=== PATIENT | female | born 1975 | race Caucasian/White ===

== ENCOUNTER 2016-06-22 12:27 | Emergency (ER) | payer OTHER ==
[2016-06-22 13:23] VITALS: RESP 18
[2016-06-22] MEDS ORDERED: LET GEL TOPICAL 1 EA SYR TP ONE (13:34)
--- NOTE | 2016-06-22 15:06 | EDPHY ---
H & P Chief Complaint Nursing Narrative: LEFT WRIST DOG BITE OCCURRED TODAY AT 930AM WHEN PT DOG BIT HER, BLEEDING CONTORLLED. +CMS Time Seen by Provider: 06/22/16 14:56 HPI/ROS: CHIEF COMPLAINT: Left wrist laceration, dog bite HISTORY OF PRESENT ILLNESS: The patient is a 41-year-old female whose dog bit her on the wrist. She has a 3 cm laceration to the dorsal aspect of her left wrist. She also has several puncture wounds around the palmar aspect. Normal sensation and pulses. Normal capillary refill. Normal strength and movement. No paresthesias. This happened around 10:00 a.m.. She went to her primary care doctor who referred her here. REVIEW OF SYSTEMS: Constitutional: denies: chills, fever, recent illness, recent injury EENTM: denies: blurred vision, double vision, nose congestion Respiratory: denies: cough, shortness of breath Cardiac: denies: chest pain, irregular heart rate, lightheadedness, palpitations Gastrointestinal/Abdominal: denies: abdominal pain, diarrhea, nausea, vomiting, blood streaked stools Genitourinary: denies: dysuria, frequency, hematuria, pain Musculoskeletal: denies: joint pain, muscle pain Skin: See HPI Neurological: denies: headache, numbness, paresthesia, tingling, dizziness, weakness Hematologic/Lymphatic: denies: blood clots, easy bleeding, easy bruising Immunologic/allergic: denies: HIV/AIDS, transplant EXAM: GENERAL: Well-appearing, well-nourished and in no acute distress. HEAD: Atraumatic, normocephalic. EYES: Pupils equal round and reactive to light, extraocular movements intact, sclera anicteric, conjunctiva are normal. ENT: TMs normal, nares patent, oropharynx clear without exudates. Moist mucous membranes. NECK: Normal range of motion, supple without lymphadenopathy or JVD. LUNGS: Breath sounds clear to auscultation bilaterally and equal. No wheezes rales or rhonchi. HEART: Regular rate and rhythm without murmurs, rubs or gallops. ABDOMEN: Soft, nontender, normoactive bowel sounds. No guarding, no rebound. No masses appreciated. BACK: No CVA tenderness, no spinal tenderness, step-offs or deformities EXTREMITIES: Normal range of motion, no pitting or edema. No clubbing or cyanosis. NEUROLOGICAL: Cranial nerves II through XII grossly intact. Normal speech, normal gait. 5/5 strength, normal movement in all extremities, normal sensation PSYCH: Normal mood, normal affect. SKIN: 3 cm laceration over dorsal aspect of left wrist, fashion visible and intact. No visible tendon nerve or vascular injuries. Exam through full range of motion. No visible foreign body. Several small puncture wounds over the palmar and lateral aspects of her wrist as well. 1 with a small amount of fat protruding. Source: Patient Exam Limitations: No limitations - Personal History LMP (Females 10-55): 1-7 Days Ago Current Tetanus Diphtheria and Acellular Pertussis (TDAP): Yes Tetanus Vaccine Date: 06/22/2016 - Medical/Surgical History Hx Asthma: No Hx Chronic Respiratory Disease: No Hx Diabetes: No Hx Cardiac Disease: No Hx Renal Disease: No Hx Cirrhosis: No Hx Alcoholism: No Hx HIV/AIDS: No Other PMH: KNEE SURG - Family History Significant Family History: No pertinent family hx - Social History Smoking Status: Never smoked Alcohol Use: Sober Drug Use: None Constitutional: Initial Vital Signs Temperature (C) 36.6 C 06/22/16 13:00 Heart Rate 83 06/22/16 13:00 Respiratory Rate 18 06/22/16 13:00 Blood Pressure 120/67 06/22/16 13:00 O2 Sat (%) 95 06/22/16 13:00 O2 Delivery Mode Room Air Allergies/Adverse Reactions: No Known Allergies Allergy (Unverified 06/22/16 13:23) Home Medications: Medication Instructions Recorded Amoxicillin/Clavulanate Pot 875 mg PO BID #14 tab 06/22/16 [Augmentin 875Mg] Medical Decision Making Procedures: Procedure: Laceration repair. Verbal consent was obtained from the patient. The 3 cm wrist laceration was anesthetized with 0.5% bupivacaine with epinephrine locally infiltrated. The wound was irrigated copiously according to protocol, draped and explored to its base. It was approximately 1/2 cm deep. There were no deep structures involved. No tendon, nerve, or vascular injury was identified when explored through full range of motion. No foreign body was identified. The wound was repaired with 5.0 Ethilon, 10 sutures, continuous interlocking. The wound repair was simple without wound margin revisement or multiple flap alignment. The procedure was performed by myself. A dressing was then placed with sterile gauze and bacitracin. Procedure: Laceration repair. Verbal consent was obtained from the patient. The 1 cm left wrist puncture/ laceration was anesthetized with 0.5% bupivacaine with epinephrine locally infiltrated. The wound was irrigated copiously according to protocol, draped and explored to its base. It was approximately 1/2 cm deep. There were no deep structures involved. No tendon, nerve, or vascular injury was identified when explored through full range of motion. No foreign body was identified. The wound was repaired with 5.0 Ethilon, 1 suture. The wound repair was simple without wound margin revisement or multiple flap alignment. The procedure was performed by myself. A dressing was then placed with sterile gauze and bacitracin. ED Course/Re-evaluation: Patient tolerated the procedure well. We discussed sutures and suture care. I will start her on antibiotics for prophylaxis considering the location of the wound. She understands and agrees with this plan. She declines further workup or testing at this time. Differential Diagnosis: Partial list of the Differential diagnosis considered include but were not limited to; laceration, dog bite, puncture wound, foreign body, tendon injury, nerve injury, vascular injury and although unlikely based on the history and physical exam, I also considered infection, fracture. I discussed these differential diagnoses and the plan with the patient as well as the usual and expected course. The patient understands that the diagnosis is provisional and that in medicine we are not always correct and that further workup is often warranted. Usual and customary warnings were given. All of the patient's questions were answered. The patient was instructed to return to the emergency department should the symptoms at all worsen or return, otherwise to followup with the physician as we discussed. - Data Points Medications Given: Discontinued Medications Tetracaine/Epinephrine/Lidocaine (Let Gel Topical) 1 ea TP EDNOW ONE Stop: 06/22/16 13:35 Last Admin: 06/22/16 13:50 Dose: 1 ea Departure - Departure Disposition: Home, Routine, Self-Care Clinical Impression: Laceration Dog bite Qualifiers: Encounter type: initial encounter Qualified Code(s): W54.0XXA - Bitten by dog, initial encounter Condition: Fair Instructions: Animal Bite (ED), Care For Your Stitches (ED), Laceration (ED) Additional Instructions: Have your stitches removed in 10 days Referrals: [facility] [Other] - As per Instructions Matteo Story MD [Medical Doctor] - As per Instructions Prescriptions: Amoxicillin/Clavulanate Pot [Augmentin 875Mg] 875 mg PO BID #14 tab
[2016-06-22] MEDS ORDERED: BACITRACIN OINTMENT 1 PACKET TP ONE (15:48)
[2016-06-22 23:01] VITALS: BP 122/70; PULSE 68; TEMP 98.1; O2SAT 96
== END 2016-06-22 16:02 | disposition home or self-care (01) ==
LOC: CED 12:27
PROC: 0HQEXZZ Repair Left Lower Arm Skin, External Approach (ICD-10-PCS; principal; 2016-06-22)
DX: S61.552A Open bite of left wrist, initial encounter (principal); S61.532A Puncture wound without foreign body of left wrist, initial encounter; W54.0XXA Bitten by dog, initial encounter
CPT/HCPCS: 12002-PO; 99214-PO; G0463-PO